=== PATIENT | male | born 1990 | race African-American/Black ===

== ENCOUNTER 2020-11-29 10:57 | Emergency (ER) | payer MEDICAID ==
[~2020-11-29] VITALS: Ht 170.2 cm; Wt 65.0 kg
[2020-11-29] MEDS ORDERED: IBUPROFEN 600MG TABLET PO ONE (11:30)
[2020-11-29 13:00] VITALS: BP 127/78
== END 2020-11-29 13:08 | disposition home or self-care (01) ==
LOC: ER 10:57
DX: S43.491A Other sprain of right shoulder joint, initial encounter (principal); W01.0XXA Fall on same level from slipping, tripping and stumbling without subsequent striking against object, initial encounter; Y93.61 Activity, american tackle football; Y92.89 Other specified places as the place of occurrence of the external cause
CPT/HCPCS: 73030; 99283

== ENCOUNTER 2021-02-28 11:46 | Emergency (ER) | payer MEDICAID ==
[~2021-02-28] VITALS: Ht 177.8 cm; Wt 71.0 kg
[2021-02-28 12:21] VITALS: BP 112/70
[2021-02-28] MEDS ORDERED: IBUP-2030 MT (12:50)
[2021-02-28] MEDS ORDERED: AMOX-424 MT (12:50)
[2021-02-28] MEDS ORDERED: ACET650T37 MT (12:50)
== END 2021-02-28 14:50 | disposition home or self-care (01) ==
LOC: ER 13:23
DX: K04.7 Periapical abscess without sinus (principal)
CPT/HCPCS: 99281; 99283